=== PATIENT | male | born 1990 | race Hispanic/Latino ===

== ENCOUNTER 2018-09-18 15:59 | Emergency (ER) | payer SELFPAY ==
[2018-09-18] MEDS ORDERED: Sodium Chloride 0.9% 1,000 ML IV STA (16:34)
[2018-09-18 16:45] LABS: BASO % 0.8 % (0.0-2.0); EOS # 0.1 K/uL (0.0-0.7); EOS % 1.1 % (0.0-4.0); HEMOGLOBIN 14.5 g/dL (12.0-18.0); LYMPH # 1.9 K/uL (1.0-4.3); LYMPH % 39.7 % (20.0-40.0); MEAN CELL VOLUME 90.6 fl (80.0-94.0); MEAN CORPUSCULAR HEMOGLOBIN 30.2 pg (27.0-31.0); MEAN CORPUSCULAR HGB CONC 33.3 g/dL (33.0-37.0); MEAN PLATELET VOLUME 7.8 fl (7.2-11.7); MONO # 0.4 K/uL (0.0-0.8); MONO % 7.3 % (0.0-10.0); NEUT # 2.5 K/uL (1.8-7.0); NEUT % 51.1 % (50.0-75.0); NRBC % 0.1 % (0.0-0.0); RBC 4.8 Mil/uL (4.40-5.90); RED CELL DISTRIBUTION WIDTH 13.4 % (11.5-14.5); WHITE BLOOD COUNT 4.9 K/uL (4.8-10.8)
--- NOTE | 2018-09-18 17:01 | RAD ---
Date of service: 09/18/2018 HISTORY: SOB COMPARISON: No prior. FINDINGS: LUNGS: No active pulmonary disease. PLEURA: No significant pleural effusion identified, no pneumothorax apparent. CARDIOVASCULAR: No aortic atherosclerotic calcification present. Normal cardiac size. No pulmonary vascular congestion. OSSEOUS STRUCTURES: No significant abnormalities. VISUALIZED UPPER ABDOMEN: Normal. OTHER FINDINGS: None. IMPRESSION: No active disease.
[2018-09-18 17:04] LABS: INR 0.9; PROTHROMBIN TIME 10.4 Seconds (9.8-13.1)
[2018-09-18 17:05] LABS: ALB/GLOB RATIO 1.4 (1.0-2.1); ALT/SGPT 27 U/L (21-72); AST/SGOT 29 U/L (17-59); BLOOD UREA NITROGEN 17 mg/dl (9-20); CALCIUM 9.9 mg/dL (8.4-10.2); GFR NON-AFRICAN AMERICAN > 60
[2018-09-18 17:16] LABS: B-TYPE NATRIURETIC PEPTIDE 27.5 pg/ml (0-450)
[2018-09-18 18:12] LABS: URINE BILIRUBIN NEGATIVE (NEGATIVE); URINE BLOOD NEGATIVE (NEGATIVE); URINE CLARITY CLEAR (Clear); URINE COLOR YELLOW (YELLOW); URINE GLUCOSE (UA) NEG (Normal); URINE LEUKOCYTE ESTERASE NEG Leu/uL (Negative); URINE PROTEIN NEGATIVE (NEGATIVE); URINE UROBILINOGEN 0.2-1.0 mg/dL (0.2-1.0)
--- NOTE | 2018-09-18 18:22 | ED PDOC ---
HPI: SOB/CHF/COPD Time Seen by Provider: 09/18/18 16:19 Chief Complaint (Nursing): Shortness Of Breath Chief Complaint (Provider): dizzy, SOB, chest discomfort History Per: Patient History/Exam Limitations: no limitations Current Symptoms Are (Timing): Better Severity: Severe Associated Symptoms: Chest Pain, Heart Racing, Dizziness, Light-headedness, Anxiety, Tingling In Hands Or Face, Musle Spasms In Hands Or Feet. 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 Denies prior history of same, does not prior anxiety but never had a panic attack. Admits to alcohol use last night, usually "goes out" twice a week, used cocaine about one week ago, denies more recent use. Past Medical History Reviewed: Historical Data, Nursing Documentation, Vital Signs Vital Signs: Last Vital Signs Temp 98.0 F 09/18/18 16:05 Pulse 69 09/18/18 17:02 Resp 19 09/18/18 17:02 BP 146/75 09/18/18 17:02 Pulse Ox 97 09/18/18 17:02 - Medical History PMH: Anxiety Denies: Chronic Kidney Disease - Surgical History Surgical History: No Surg Hx - Family History Family History: States: Unknown Family Hx - Social History Alcohol: Occasional Drugs: Cocaine (rarely) - Home Medications Home Medications: Ambulatory Orders Medication Instructions Recorded Lorazepam [Ativan] 0.5 mg PO Q12 PRN #4 tab 09/18/18 - Allergies Allergies/Adverse Reactions: Allergies Allergy/AdvReac Type Severity Reaction Status Date / Time No Known Allergies Allergy Verified 09/18/18 16:05 Wells Criteria for PE - Wells Criteria for Pulmonary Embolism Clinical Signs and Symptoms of DVT: No P.E is #1 Diagnosis, or Equally Likely: No Heart Rate >100: No Immobilization at least 3 days;Surgery previous 4 weeks: No Previous, objectively diagnosed PE or DVT: No Hemoptysis: No Malignancy w/treatment within 6 months, or palliative: No Total Score: 0 Review of Systems Constitutional: Negative for: Fever, Chills, Weakness, Malaise, Weight loss Eyes: Negative for: Vision Change ENT: Negative for: Nose Discharge, Throat Pain Cardiovascular: Positive for: Chest Pain, Palpitations. Negative for: Orthopnea, Edema, Light Headedness Respiratory: Positive for: Cough, Shortness of Breath Gastrointestinal: Positive for: Nausea. Negative for: Vomiting, Abdominal Pain Genitourinary Male: Negative for: Dysuria Musculoskeletal: Negative for: Neck Pain Skin: Negative for: Rash, Lesions, Jaundice Neurological: Positive for: Numbness, Dizziness. Negative for: Weakness, Change in Speech, Confusion, Headache Physical Exam - Reviewed Nursing Documentation Reviewed: Yes Vital Signs Reviewed: Yes - Physical Exam Appears: Positive for: Non-toxic (anxious appearing), No Acute Distress Head Exam: Positive for: ATRAUMATIC, NORMAL INSPECTION, NORMOCEPHALIC Skin: Positive for: Normal Color, Warm, Dry. Negative for: Diaphoresis Eye Exam: Positive for: Normal appearance, EOMI (pupils 4mm sluggish b/l), PERRL ENT: Positive for: Normal ENT Inspection Neck: Positive for: Normal, Painless ROM Cardiovascular/Chest: Positive for: Regular Rate, Rhythm Respiratory: Positive for: CNT, Normal Breath Sounds Pulses-Radial (L): 3+/4+ Pulses-Radial (R): 3+/4+ Gastrointestinal/Abdominal: Positive for: Soft. Negative for: Tenderness Back: Positive for: Normal Inspection Extremity: Positive for: Normal ROM. 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 Negative for: Motor/Sensory Deficits, Aphasia - Laboratory Results Result Diagrams: 09/18/18 16:41 09/18/18 16:41 - ECG ECG: Positive for: Interpreted By Me ECG Rhythm: Positive for: Normal QRS, Normal ST Segment, Sinus Rhythm, Left Bundle Branch Block Rate: 85 O2 Sat by Pulse Oximetry: 97 Pulse Ox Interpretation: Normal Medical Decision Making Medical Decision Making: patient anxious appearing with classic perioral and b/l hand paresthesias, "pending feeling of doom", given ativan 0.5mg IV once w improvement Labs and CXR unremarkable Disposition - Clinical Impression Clinical Impression: Anxiety - Patient ED Disposition Is Patient to be Admitted: Transfer of Care Counseled Patient/Family Regarding: Studies Performed - Disposition Disposition: Transfer of Care Disposition Time: 19:00 Condition: STABLE Prescriptions: Lorazepam [Ativan] 0.5 mg PO Q12 PRN #4 tab PRN Reason: Anxiety Instructions: Anxiety, Adult (DC) Forms: [employer] (Kenyan), [facility] ED School/Work Excuse Patient Signed Over To: Stone Pascual
[2018-09-18 18:25] LABS: BARBITURATES, UR NEGATIVE (NEGATIVE); BENZODIAZEPINES, UR NEGATIVE (NEGATIVE); OPIATES, UR NEGATIVE (NEGATIVE); PHENCYCLIDINE, UR NEGATIVE (NEGATIVE)
[2018-09-18 18:48] VITALS: RESP 18; TEMP 98.6
--- NOTE | 2018-09-18 19:30 | ED PDOC ---
- Laboratory Results Result Diagrams: 09/18/18 16:41 09/18/18 16:41 - ECG O2 Sat by Pulse Oximetry: 99 Medical Decision Making Medical Decision Making: Time: 1899 --Patient is endorsed to provider by Dr. Taylor, pending d-dimer results and re- evaluation. Time: 2004 --D-dimer reviewed: within normal limits. Upon provider reevaluation, patient is medically stable and requires no further treatment in the ED at this time. Patient will be discharged home with Rx for Ativan. Counseling was provided and all questions were answered regarding diagnosis. There is agreement to discharge plan. Return if symptoms persist or worsen. Clinical Impression: Anxiety Scribe Attestation: Documented by Maura Hoang, acting as a scribe for Stone Pascual MD. Provider Scribe Attestation: All medical record entries made by the Scribe were at my direction and personally dictated by me. I have reviewed the chart and agree that the record accurately reflects my personal performance of the history, physical exam, medical decision making, and the department course for this patient. I have also personally directed, reviewed, and agree with the discharge instructions and disposition. Disposition Counseled Patient/Family Regarding: Studies Performed, Diagnosis, Rx Given - Clinical Impression Clinical Impression: Anxiety - POA Present On Arrival: None - Disposition Disposition: Routine/Home Disposition Time: 20:05 Condition: STABLE Prescriptions: Lorazepam [Ativan] 0.5 mg PO Q12 PRN #4 tab PRN Reason: Anxiety Instructions: Anxiety, Adult (DC) Forms: [employer] (French), [facility] ED School/Work Excuse
[2018-09-18 20:22] VITALS: BP 138/72
[2018-09-19 07:55] VITALS: PULSE 85; O2SAT 97
--- NOTE | 2018-09-19 07:57 | CARD ---
APPROVED REPORT Date of service: 09/18/2018 EKG Measurement Heart [id number] <Conclusion> Normal sinus rhythm Normal Electrocardiogram
== END 2018-09-18 20:34 | disposition home or self-care (01) ==
LOC: H.ER 15:59
DX: F41.9 Anxiety disorder, unspecified (principal)
CPT/HCPCS: 71045; 80053; 81003; 82948; 83735; 83880; 84484; 85025; 85378; 85610; 85730; 93005; 96361; 96374; 99285; G0480; J2060; J7030